=== PATIENT | female | born 1955 | race Caucasian/White ===

== ENCOUNTER 2016-06-27 16:36 | Inpatient (IN) | payer OTHER ==
[~2016-06-27] VITALS: Ht 160 cm; Wt 75.3 kg
[2016-06-27] VITALS (9 sets, daily range): BP systolic 115–141; BP diastolic 59–103
[~2016-06-27 16:36] MED LIST: ACTOS; ADDERALL30 MG PO; ALTACE; ALTOPREV40 MG PO; ARTIFICIAL TEAR15 M1 LEFT EYE; ARTIFICIAL TEAR15 M3 BOTH EYES; CEFUROXIME500 MG PO; CIPRO500 MG PO; DIAZEPAM10 MG PO; Ecotrin PO; GLUCOPHAGE1000 MG PO; LANTUS (UNITS)1 UNIT SC; LANTUS 10100 UNITS/ SC; LANTUS 3 M100 UNITS/ SC; LANTUS 3 M100 UNITS1 SC; LEVOTHYROXINE; LEVOTHYROXINE75 MCG PO; LISINOPRIL10 MG PO; LOVASTATIN; LOVASTATIN40 MG PO; METFORMIN; METFORMIN HCL1000 M1 PO; METFORMIN HCL1000 MG PO; NAPROSYN500 MG PO; RITALIN20 MG PO; SIMVASTATIN20 MG PO
[2016-06-27 16:49] LABS: EOSINOPHIL (%) 3.7 % (0-5); EOSINOPHIL COUNT 0.2 K/uL (0-0.3); IMMATURE GRANULOCYTE (%) 0.2 % (0.0-0.7); INSTRUMENT ABS NEUTROPHIL CT 2.9 K/uL; LYMPHOCYTE COUNT 1.5 K/uL (1.0-2.8); MCHC 33.1 G/DL (30.0-36.0); MCV 90.7 FL (83-99); MEAN PLAT.VOLUME 11.6 uM^3 (9.5-12.4); MONOCYTE COUNT 0.6 K/uL (0-0.8); NEUTROPHIL (%) 55.5 % (45-76); NEUTROPHIL COUNT 2.9 K/uL (1.8-6.4); PLATELET COUNT 184 K/uL (156-360); RBC DIS.WIDTH-CV 12.6 % (11.8-14.6); RBC DIS.WIDTH-SD 41.4 % (39-53); WHITE BLOOD COUNT 5.2 K/uL (4.1-10.2)
[2016-06-27 16:58] LABS: AMYLASE 44 IU/L (1-118); CHLORIDE 108 mEq/L (99-109); POTASSIUM 4.1 mEq/L (3.7-5.4); SODIUM 141 mEq/L (136-147)
[2016-06-27 17:00] LABS: GLUCOSE 318 mg/dL (70-99)
[2016-06-27 17:01] LABS: ANION GAP 10 MEQ/L (2-14)
[2016-06-27 17:03] LABS: SERUM ETHYL ALCOHOL < 10 mg/dL
[2016-06-27 17:04] LABS: GFR ESTIMATE (CALCULATED) 49 mL/min/
[2016-06-27 17:05] LABS: UREA NITROGEN (BUN) 22 mg/dL (9-23)
[2016-06-27 17:07] LABS: LIPASE 111 U/L (1.0-51.0)
[2016-06-27 19:25] LABS: POINT-OF-CARE METER ID UU13113731
[2016-06-27 21:17] LABS: METH RESISTANT S AUREUS PCR NEGATIVE (NEGATIVE)
[2016-06-27 21:31] LABS: PROBE CHECK PASS; SPECIMEN PROCESSING CONTROL PASS
[2016-06-27 22:47] LABS: POINT-OF-CARE METER ID UU13113731
[2016-06-28] VITALS (20 sets, daily range): BP systolic 84–136; BP diastolic 52–82
[2016-06-28 06:21] LABS: EOSINOPHIL (%) 3.6 % (0-5); EOSINOPHIL COUNT 0.2 K/uL (0-0.3); HEMATOCRIT 34.6 % (36.0-46.0); IMMATURE GRANULOCYTE (%) 0.4 % (0.0-0.7); INSTRUMENT ABS NEUTROPHIL CT 3.3 K/uL; LYMPHOCYTE COUNT 1.5 K/uL (1.0-2.8); MCH 30.3 PG (29.0-34.0); MCHC 33.2 G/DL (30.0-36.0); MCV 91.1 FL (83-99); MEAN PLAT.VOLUME 11.9 uM^3 (9.5-12.4); MONOCYTE COUNT 0.5 K/uL (0-0.8); NEUTROPHIL (%) 58.8 % (45-76); NEUTROPHIL COUNT 3.3 K/uL (1.8-6.4); PLATELET COUNT 158 K/uL (156-360); RBC DIS.WIDTH-CV 12.3 % (11.8-14.6); RBC DIS.WIDTH-SD 41.1 % (39-53); WHITE BLOOD COUNT 5.6 K/uL (4.1-10.2)
[2016-06-28 06:45] LABS: ALKALINE PHOSPHATASE 62 IU/L (3-129); ANION GAP 6 MEQ/L (2-14); CHLORIDE 107 MEQ/L (99-109); CREATINE KINASE 97 IU/L (1-294); DIRECT BILIRUBIN 0.1 mg/dL (0.0-0.3); GFR ESTIMATE (CALCULATED) > 59 mL/min/; GLUCOSE 179 mg/dL (70-99); HDL CHOLESTEROL 59 MG/DL (Desirable>=50); LDL CHOLESTEROL 147 mg/dL (Desirable<100); NON-HDL CHOLESTEROL 169 mg/dL (Desirable<160); POTASSIUM 4.4 MEQ/L (3.7-5.4); SAMPLE HEMOLYSIS CHECK 0; SAMPLE ICTERIC CHECK 0; SAMPLE LIPEMIA CHECK 0; SODIUM 138 MEQ/L (136-147); TOTAL BILIRUBIN 0.4 MG/DL (0.0-1.0); TOTAL CHOLESTEROL 228 mg/dL (Desirable<200); TOTAL CK 97 IU/L (1-294); TRIGLYCERIDES 111 MG/DL (Normal: <150); UREA NITROGEN (BUN) 21 mg/dL (9-23)
[2016-06-28 07:12] LABS: CK-MB 6.8 ng/mL (0.0-4.9)
[2016-06-28 07:23] LABS: TROP-I INTERPRETATION POSITIVE; TROPONIN-I 2.75 ng/mL (0.0-0.30)
[2016-06-28] MEDS ORDERED: ADDERALL XR 3030 MG PO ×2 (09:47→09:48)
[2016-06-28] MEDS ORDERED: LEVO-T75 MCG PO (09:49)
[2016-06-28] MEDS ORDERED: GLUCOPHAGE1000 MG PO (09:49)
[2016-06-28] MEDS ORDERED: LOSARTAN POTASS50 MG PO (09:49)
[2016-06-28] MEDS ORDERED: VALIUM10 MG PO (09:50)
[2016-06-28] MEDS ORDERED: LANTUS 10100 UNITS/ SC (09:50)
[2016-06-28 13:06] LABS: POINT-OF-CARE METER ID UU13113803
[2016-06-28 13:49] LABS: TROP-I INTERPRETATION POSITIVE; TROPONIN-I 2.13 ng/mL (0.0-0.30)
[2016-06-28 13:53] LABS: CREATINE KINASE 81 IU/L (1-294); TOTAL CK 81 IU/L (1-294)
[2016-06-28 14:21] LABS: CK-MB 5.6 ng/mL (0.0-4.9)
[2016-06-28 17:37] LABS: POINT-OF-CARE METER ID UU13113803
[2016-06-29 00:10] VITALS: BP 117/78
[2016-06-29 04:41] VITALS: BP 100/55
[2016-06-29 07:19] LABS: GFR ESTIMATE (CALCULATED) > 59 mL/min/; UREA NITROGEN (BUN) 26 mg/dL (9-23)
[2016-06-29 07:59] VITALS: BP 104/57
[2016-06-29 08:00] LABS: POINT-OF-CARE USER ID ENVKC36
[2016-06-29] MEDS ORDERED: NITROSTAT0.4 MG SL (09:57)
[2016-06-29] MEDS ORDERED: LISINOPRIL10 MG PO (09:57)
[2016-06-29] MEDS ORDERED: CLOPIDOGREL75 MG PO (09:57)
[2016-06-29] MEDS ORDERED: ASPIR-LOW81 MG PO (09:57)
[2016-06-29] MEDS ORDERED: CARVEDILOL6.25 MG PO (09:57)
[2016-06-29] MEDS ORDERED: EZETIMIBE10 MG PO (09:57)
== END 2016-06-29 13:02 | disposition home or self-care (01) | DRG 247 ==
LOC: EME 16:36 → CATH 18:03 → 2SOUTH 18:04 → 4WEST 18:04 → 4EAST 18:04 → 4WEST 18:06 → 4EAST 06-28 17:26
PROVIDERS: Emergency Medicine; Internal Medicine Cardiovascular Disease
DX: I21.19 ST elevation (STEMI) myocardial infarction involving other coronary artery of inferior wall (principal); I42.9 Cardiomyopathy, unspecified; I11.9 Hypertensive heart disease without heart failure; I25.10 Atherosclerotic heart disease of native coronary artery without angina pectoris; E78.5 Hyperlipidemia, unspecified; D35.2 Benign neoplasm of pituitary gland; E03.9 Hypothyroidism, unspecified; G51.0 Bell's palsy; E11.9 Type 2 diabetes mellitus without complications; R91.8 Other nonspecific abnormal finding of lung field; Z79.84 Long term (current) use of oral hypoglycemic drugs; Z79.4 Long term (current) use of insulin
CPT/HCPCS: 80048; 80061; 80076; 81003; 82150; 82550; 82550 91; 82553; 82565; 82948; 83690; 84484; 84520; 85025; 85347; 86850; 86900; 86901; 87641; 93005; 94799; 99281; 99285; C1725; C1769; C1874; C1887; G0480; J0153; J0461; J1644; J1815; J2250; J2405; J3010; J3246; J7040

== ENCOUNTER 2016-08-05 17:38 | Inpatient (IN) | payer OTHER ==
[~2016-08-05] VITALS: Ht 165.1 cm; Wt 72.7 kg
[~2016-08-05 17:38] MED LIST changes: +ADDERALL XR 3030 MG PO; +ASPIR-LOW81 MG PO; +CARVEDILOL6.25 MG PO; +CLOPIDOGREL75 MG PO; +EZETIMIBE10 MG PO; +LEVO-T75 MCG PO; +LOSARTAN POTASS50 MG PO; +NITROSTAT0.4 MG SL; +VALIUM10 MG PO
[2016-08-05 18:39] LABS: EOSINOPHIL (%) 1.5 % (0-5); EOSINOPHIL COUNT 0.1 K/uL (0-0.3); HEMATOCRIT 35.4 % (36.0-46.0); IMMATURE GRANULOCYTE (%) 0.3 % (0.0-0.7); INSTRUMENT ABS NEUTROPHIL CT 5.8 K/uL; LYMPHOCYTE COUNT 2.1 K/uL (1.0-2.8); MCH 29.8 PG (29.0-34.0); MCHC 32.8 G/DL (30.0-36.0); MEAN PLAT.VOLUME 11.8 uM^3 (9.5-12.4); MONOCYTE (%) 10.8 % (3-12); NEUTROPHIL (%) 64.1 % (45-76); NEUTROPHIL COUNT 5.8 K/uL (1.8-6.4); PLATELET COUNT 184 K/uL (156-360); RBC DIS.WIDTH-CV 12.9 % (11.8-14.6); RBC DIS.WIDTH-SD 42.2 % (39-53); RED BLOOD COUNT 3.89 M/uL (3.80-5.20); WHITE BLOOD COUNT 9.1 K/uL (4.1-10.2)
[2016-08-05 18:51] LABS: CHLORIDE 104 mEq/L (99-109); POTASSIUM 4.9 mEq/L (3.7-5.4); SODIUM 140 mEq/L (136-147)
[2016-08-05 18:52] LABS: MAGNESIUM 1.3 mg/dL (1.3-2.7)
[2016-08-05 18:53] LABS: GLUCOSE 65 mg/dL (70-99)
[2016-08-05 18:54] LABS: ANION GAP 14 MEQ/L (2-14)
[2016-08-05 18:57] LABS: GFR ESTIMATE (CALCULATED) 14 mL/min/
[2016-08-05 18:58] LABS: UREA NITROGEN (BUN) 51 mg/dL (9-23)
[2016-08-05 19:00] LABS: D-DIMER ELISA 1.24 mg/L FEU (< 0.57); INTER. NORMALIZED RATIO 1.1; PROTHROMBIN TIME 11.3 (9.2-11.2)
[2016-08-05 19:01] LABS: TROP-I INTERPRETATION NEGATIVE; TROPONIN-I 0.02 ng/mL (0.0-0.30)
[2016-08-05] MEDS ORDERED: PLAVIX75 MG PO (21:54)
[2016-08-05] MEDS ORDERED: ZOLPIDEM TARTRA10 MG PO (21:58)
[2016-08-05] MEDS ORDERED: NEW INSULIN (22:00)
[2016-08-05 23:00] VITALS: BP 132/63
[2016-08-05 23:56] LABS: TROP-I INTERPRETATION NEGATIVE; TROPONIN-I < 0.01 ng/mL (0.0-0.30)
[2016-08-06] MEDS ORDERED: TRAMADOL HCL50 MG PO (00:22)
[2016-08-06 04:33] VITALS: BP 104/50
[2016-08-06 07:52] LABS: TROP-I INTERPRETATION NEGATIVE; TROPONIN-I 0.02 ng/mL (0.0-0.30)
[2016-08-06 08:00] VITALS: BP 97/54
[2016-08-06 11:30] VITALS: BP 125/58
[2016-08-06 13:17] LABS: TROP-I INTERPRETATION NEGATIVE; TROPONIN-I < 0.01 ng/mL (0.0-0.30)
[2016-08-06 16:10] VITALS: BP 136/70
[2016-08-06 20:20] VITALS: BP 129/60
[2016-08-06 21:54] LABS: POINT-OF-CARE METER ID UU14174216
[2016-08-07 04:30] VITALS: BP 128/58
[2016-08-07 07:20] VITALS: BP 123/59
[2016-08-07 07:48] LABS: EOSINOPHIL (%) 2.3 % (0-5); EOSINOPHIL COUNT 0.1 K/uL (0-0.3); IMMATURE GRANULOCYTE (%) 0.2 % (0.0-0.7); INSTRUMENT ABS NEUTROPHIL CT 1.9 K/uL; LYMPHOCYTE COUNT 1.9 K/uL (1.0-2.8); MCH 30.2 PG (29.0-34.0); MCHC 32.6 G/DL (30.0-36.0); MCV 92.6 FL (83-99); MEAN PLAT.VOLUME 12.1 uM^3 (9.5-12.4); MONOCYTE (%) 11.3 % (3-12); MONOCYTE COUNT 0.5 K/uL (0-0.8); NEUTROPHIL (%) 42.9 % (45-76); NEUTROPHIL COUNT 1.9 K/uL (1.8-6.4); PLATELET COUNT 148 K/uL (156-360); RBC DIS.WIDTH-CV 12.6 % (11.8-14.6); RED BLOOD COUNT 3.67 M/uL (3.80-5.20); WHITE BLOOD COUNT 4.3 K/uL (4.1-10.2)
[2016-08-07 08:19] LABS: CHLORIDE 113 mEq/L (99-109); POTASSIUM 5.6 mEq/L (3.7-5.4); SODIUM 139 mEq/L (136-147)
[2016-08-07 08:21] LABS: GLUCOSE 166 mg/dL (70-99)
[2016-08-07 08:22] LABS: ANION GAP 5 MEQ/L (2-14)
[2016-08-07 08:25] LABS: GFR ESTIMATE (CALCULATED) 41 mL/min/
[2016-08-07 08:26] LABS: UREA NITROGEN (BUN) 28 mg/dL (9-23)
[2016-08-07 11:03] VITALS: BP 168/67
[2016-08-07 11:22] LABS: POINT-OF-CARE METER ID UU14174216
[2016-08-07 16:41] VITALS: BP 162/72
[2016-08-07 19:20] VITALS: BP 159/70
[2016-08-07 23:44] VITALS: BP 132/65
[2016-08-08 04:20] VITALS: BP 143/66
[2016-08-08 07:28] LABS: EOSINOPHIL (%) 3.3 % (0-5); EOSINOPHIL COUNT 0.2 K/uL (0-0.3); HEMATOCRIT 32.9 % (36.0-46.0); IMMATURE GRANULOCYTE (%) 0.2 % (0.0-0.7); INSTRUMENT ABS NEUTROPHIL CT 2.2 K/uL; MCH 30.7 PG (29.0-34.0); MCHC 33.7 G/DL (30.0-36.0); MCV 91.1 FL (83-99); MEAN PLAT.VOLUME 11.9 uM^3 (9.5-12.4); MONOCYTE (%) 10.1 % (3-12); MONOCYTE COUNT 0.5 K/uL (0-0.8); NEUTROPHIL (%) 45.3 % (45-76); NEUTROPHIL COUNT 2.2 K/uL (1.8-6.4); PLATELET COUNT 146 K/uL (156-360); RBC DIS.WIDTH-CV 12.6 % (11.8-14.6); RBC DIS.WIDTH-SD 41.6 % (39-53); RED BLOOD COUNT 3.61 M/uL (3.80-5.20); WHITE BLOOD COUNT 4.9 K/uL (4.1-10.2)
[2016-08-08 07:38] LABS: POINT-OF-CARE METER ID UU13113781
[2016-08-08 08:00] LABS: ALKALINE PHOSPHATASE 50 IU/L (3-129); ANION GAP 6 MEQ/L (2-14); CHLORIDE 109 MEQ/L (99-109); GFR ESTIMATE (CALCULATED) 54 mL/min/; GLUCOSE 171 mg/dL (70-99); POTASSIUM 4.5 MEQ/L (3.7-5.4); SAMPLE HEMOLYSIS CHECK 0; SAMPLE ICTERIC CHECK 0; SAMPLE LIPEMIA CHECK 0; SODIUM 139 MEQ/L (136-147); TOTAL BILIRUBIN 0.4 MG/DL (0.0-1.0); UREA NITROGEN (BUN) 19 mg/dL (9-23)
[2016-08-08 08:43] VITALS: BP 137/63
[2016-08-08 12:09] VITALS: BP 133/63
[2016-08-08] MEDS ORDERED: ASPIRIN EC325 MG PO (12:16)
[2016-08-08] MEDS ORDERED: GLYBURIDE2.5 MG PO (12:19)
[2016-08-08 12:38] LABS: ADD MIUA? YES; BILIRUBIN NEGATIVE; BLOOD NEGATIVE; COLOR STRAW ((YELLOW)); GLUCOSE (STRIP) >=500; KETONES NEGATIVE; LEUKOCYTES MODERATE; NITRITE NEGATIVE; PROTEIN (STRIP) NEGATIVE; SPECIFIC GRAVITY 1.007 (1.000-1.030); UROBILINOGEN 0.2 MG/DL (0.2-1.0)
[2016-08-08 12:46] LABS: BACTERIA RARE /HPF; EPITHELIAL CELLS RARE /HPF; MUCUS TRACE /LPF; RED BLOOD CELLS 0-5 /HPF (0-5); UCUL ADDED? NO
== END 2016-08-08 15:53 | disposition home or self-care (01) | DRG 683 ==
LOC: EME 17:38 → EDOF 20:30 → 4EAST 20:30
PROVIDERS: Emergency Medicine; Hospitalist; Internal Medicine Nephrology
DX: N17.8 Other acute kidney failure (principal); I42.0 Dilated cardiomyopathy; I25.5 Ischemic cardiomyopathy; E11.9 Type 2 diabetes mellitus without complications; Z95.1 Presence of aortocoronary bypass graft; R62.7 Adult failure to thrive; E86.0 Dehydration; E03.9 Hypothyroidism, unspecified; I10 Essential (primary) hypertension; E78.5 Hyperlipidemia, unspecified; G47.00 Insomnia, unspecified; E66.9 Obesity, unspecified; I25.2 Old myocardial infarction; Z60.2 Problems related to living alone; Z79.02 Long term (current) use of antithrombotics/antiplatelets; Z68.26 Body mass index [BMI] 26.0-26.9, adult; Z79.82 Long term (current) use of aspirin; Z95.5 Presence of coronary angioplasty implant and graft; Z79.84 Long term (current) use of oral hypoglycemic drugs; Z79.4 Long term (current) use of insulin
CPT/HCPCS: 71010; 76770; 78582; 80048; 80053; 81003; 82948; 83735; 84484; 85025; 85379; 85610; 85730; 93005; 93970; 99281; 99285; A9539; A9540; J1644; J1815; J3475; J7030; S0028

== ENCOUNTER 2016-11-28 17:16 | Inpatient (IN) | payer OTHER ==
[~2016-11-28] VITALS: Ht 165.1 cm; Wt 83.0 kg
[~2016-11-28 17:16] MED LIST changes: +ASPIRIN EC325 MG PO; +GLYBURIDE2.5 MG PO; +NEW INSULIN; +PLAVIX75 MG PO; +TRAMADOL HCL50 MG PO; +ZOLPIDEM TARTRA10 MG PO
[2016-11-28 18:40] LABS: POINT-OF-CARE METER ID UU14100415
[2016-11-28 19:06] LABS: EOSINOPHIL (%) 1.7 % (0-5); EOSINOPHIL COUNT 0.2 K/uL (0-0.3); HEMATOCRIT 34.6 % (36.0-46.0); IMMATURE GRANULOCYTE (%) 0.5 % (0.0-0.7); INSTRUMENT ABS NEUTROPHIL CT 6.7 K/uL; LYMPHOCYTE COUNT 1.2 K/uL (1.0-2.8); MCH 30.5 PG (29.0-34.0); MCHC 32.7 G/DL (30.0-36.0); MCV 93.3 FL (83-99); MEAN PLAT.VOLUME 11.1 uM^3 (9.5-12.4); MONOCYTE COUNT 0.6 K/uL (0-0.8); NEUTROPHIL COUNT 6.7 K/uL (1.8-6.4); PLATELET COUNT 178 K/uL (156-360); RBC DIS.WIDTH-CV 12.5 % (11.8-14.6); RED BLOOD COUNT 3.71 M/uL (3.80-5.20); WHITE BLOOD COUNT 8.7 K/uL (4.1-10.2)
[2016-11-28 19:14] LABS: CHLORIDE 109 mEq/L (99-109); POTASSIUM 3.9 mEq/L (3.7-5.4); SODIUM 142 mEq/L (136-147)
[2016-11-28 19:16] LABS: GLUCOSE 276 mg/dL (70-99)
[2016-11-28 19:17] LABS: ANION GAP 12 MEQ/L (2-14)
[2016-11-28 19:20] LABS: GFR ESTIMATE (CALCULATED) > 59 mL/min/
[2016-11-28 19:21] LABS: UREA NITROGEN (BUN) 20 mg/dL (9-23)
[2016-11-28 23:01] LABS: HEMATOCRIT 36.1 % (36.0-46.0); MCV 95.3 FL (83-99)
[2016-11-28 23:10] LABS: AMYLASE 43 IU/L (1-118)
[2016-11-28 23:13] LABS: PROTHROMBIN TIME 10.9 SEC (10.2-12.9)
[2016-11-28 23:14] LABS: TOTAL BILIRUBIN 0.4 mg/dL (0.0-1.0)
[2016-11-28 23:15] LABS: ALKALINE PHOSPHATASE 75 IU/L (3-129)
[2016-11-28 23:16] LABS: PTT 24.1 SEC (25-37)
[2016-11-28 23:18] LABS: DIRECT BILIRUBIN 0.2 mg/dL (0.0-0.3)
[2016-11-28 23:19] LABS: LIPASE 56 U/L (1.0-51.0)
[2016-11-28 23:23] LABS: TROP-I INTERPRETATION NEGATIVE; TROPONIN-I < 0.01 ng/mL (0.0-0.30)
[2016-11-28] MEDS ORDERED: DIAZEPAM10 MG PO (23:27)
[2016-11-29] VITALS (15 sets, daily range): BP systolic 115–166; BP diastolic 69–96
[2016-11-29 01:37] LABS: METH RESISTANT S AUREUS PCR NEGATIVE (NEGATIVE)
[2016-11-29 01:39] LABS: PROBE CHECK PASS; SPECIMEN PROCESSING CONTROL PASS
[2016-11-29 05:19] LABS: HEMATOCRIT 35.2 % (36.0-46.0); MCH 31.9 PG (29.0-34.0); MCHC 33.8 G/DL (30.0-36.0); MCV 94.4 FL (83-99); MEAN PLAT.VOLUME 11.8 uM^3 (9.5-12.4); PLATELET COUNT 161 K/uL (156-360); RBC DIS.WIDTH-CV 12.8 % (11.8-14.6); RBC DIS.WIDTH-SD 43.8 % (39-53); RED BLOOD COUNT 3.73 M/uL (3.80-5.20); WHITE BLOOD COUNT 8.8 K/uL (4.1-10.2)
[2016-11-29 05:24] LABS: CHLORIDE 110 mEq/L (99-109); SODIUM 139 mEq/L (136-147)
[2016-11-29 05:25] LABS: POTASSIUM 5.1 mEq/L (3.7-5.4)
[2016-11-29 05:26] LABS: GLUCOSE 202 mg/dL (70-99)
[2016-11-29 05:27] LABS: ANION GAP 12 MEQ/L (2-14)
[2016-11-29 05:28] LABS: TOTAL BILIRUBIN 0.4 mg/dL (0.0-1.0)
[2016-11-29 05:29] LABS: ALKALINE PHOSPHATASE 74 IU/L (3-129)
[2016-11-29 05:30] LABS: GFR ESTIMATE (CALCULATED) > 59 mL/min/
[2016-11-29 05:31] LABS: UREA NITROGEN (BUN) 16 mg/dL (9-23)
[2016-11-29 06:31] LABS: Estimated Average Glucose 192 mg/dL (70-123); HEMOGLOBIN A1c (GLYCOHEMOGLOB) 8.3 % HGB (Below 5.7)
[2016-11-29 09:16] LABS: POINT-OF-CARE METER ID UU13113731
[2016-11-29 11:03] LABS: POINT-OF-CARE METER ID UU13113731
[2016-11-29 14:41] LABS: HEMATOCRIT 34.3 % (36.0-46.0); MCV 96.6 FL (83-99)
[2016-11-29 17:44] LABS: POINT-OF-CARE METER ID UU13113731
[2016-11-29 21:49] LABS: POINT-OF-CARE METER ID UU13113731
[2016-11-30] VITALS (12 sets, daily range): BP systolic 0–177; BP diastolic 0–135
[2016-11-30 06:12] LABS: HEMATOCRIT 33.2 % (36.0-46.0); MCV 94.1 FL (83-99); MEAN PLAT.VOLUME 12.1 uM^3 (9.5-12.4); PLATELET COUNT 132 K/uL (156-360); RBC DIS.WIDTH-CV 12.5 % (11.8-14.6); RBC DIS.WIDTH-SD 43.3 % (39-53); RED BLOOD COUNT 3.53 M/uL (3.80-5.20); WHITE BLOOD COUNT 5.7 K/uL (4.1-10.2)
[2016-11-30 06:17] LABS: ANION GAP 8 MEQ/L (2-14); CHLORIDE 104 MEQ/L (99-109); POTASSIUM 4.3 MEQ/L (3.7-5.4); SAMPLE HEMOLYSIS CHECK 0; SAMPLE ICTERIC CHECK 0; SAMPLE LIPEMIA CHECK 0; SODIUM 138 MEQ/L (136-147); TOTAL BILIRUBIN 0.4 MG/DL (0.0-1.0)
[2016-11-30 06:23] LABS: ALKALINE PHOSPHATASE 64 IU/L (3-129); GFR ESTIMATE (CALCULATED) > 59 mL/min/; GLUCOSE 151 mg/dL (70-99); UREA NITROGEN (BUN) 15 mg/dL (9-23)
[2016-11-30 11:58] LABS: POINT-OF-CARE METER ID UU13113731
[2016-11-30 17:28] LABS: POINT-OF-CARE METER ID UU13113675
[2016-11-30 21:42] LABS: POINT-OF-CARE METER ID UU14162636
[2016-12-01] VITALS (9 sets, daily range): BP systolic 0–188; BP diastolic 0–115
[2016-12-01 06:45] LABS: HEMATOCRIT 33.1 % (36.0-46.0); MCH 32.2 PG (29.0-34.0); MCHC 33.8 G/DL (30.0-36.0); MCV 95.1 FL (83-99); MEAN PLAT.VOLUME 11.7 uM^3 (9.5-12.4); RBC DIS.WIDTH-CV 12.6 % (11.8-14.6); RBC DIS.WIDTH-SD 43.5 % (39-53); RED BLOOD COUNT 3.48 M/uL (3.80-5.20); WHITE BLOOD COUNT 9.2 K/uL (4.1-10.2)
[2016-12-01 06:53] LABS: PLATELET COUNT 183 K/uL (156-360)
[2016-12-01 07:11] LABS: ALKALINE PHOSPHATASE 64 IU/L (3-129); ANION GAP 8 MEQ/L (2-14); CHLORIDE 101 MEQ/L (99-109); GFR ESTIMATE (CALCULATED) > 59 mL/min/; GLUCOSE 222 mg/dL (70-99); POTASSIUM 4.5 MEQ/L (3.7-5.4); SAMPLE HEMOLYSIS CHECK 0; SAMPLE ICTERIC CHECK 0; SAMPLE LIPEMIA CHECK 0; SODIUM 137 MEQ/L (136-147); TOTAL BILIRUBIN 0.4 MG/DL (0.0-1.0); UREA NITROGEN (BUN) 13 mg/dL (9-23)
[2016-12-01 12:03] LABS: POINT-OF-CARE METER ID UU13113731
[2016-12-01 16:10] LABS: POINT-OF-CARE METER ID UU14117124
[2016-12-01 22:19] LABS: POINT-OF-CARE METER ID UU14188577
[2016-12-02] VITALS (7 sets, daily range): BP systolic 101–159; BP diastolic 56–72
[2016-12-02 06:13] LABS: POINT-OF-CARE METER ID UU14188577
[2016-12-02 06:26] LABS: HEMATOCRIT 28.2 % (36.0-46.0); MCH 31.5 PG (29.0-34.0); MCHC 33.3 G/DL (30.0-36.0); MCV 94.6 FL (83-99); MEAN PLAT.VOLUME 11.8 uM^3 (9.5-12.4); PLATELET COUNT 159 K/uL (156-360); RBC DIS.WIDTH-CV 12.5 % (11.8-14.6); RBC DIS.WIDTH-SD 43.7 % (39-53); RED BLOOD COUNT 2.98 M/uL (3.80-5.20); WHITE BLOOD COUNT 6.4 K/uL (4.1-10.2)
[2016-12-02 07:12] LABS: ALKALINE PHOSPHATASE 61 IU/L (3-129); ANION GAP 6 MEQ/L (2-14); CHLORIDE 101 MEQ/L (99-109); GFR ESTIMATE (CALCULATED) > 59 mL/min/; GLUCOSE 183 mg/dL (70-99); POTASSIUM 4.1 MEQ/L (3.7-5.4); SAMPLE HEMOLYSIS CHECK 0; SAMPLE ICTERIC CHECK 0; SAMPLE LIPEMIA CHECK 0; SODIUM 137 MEQ/L (136-147); TOTAL BILIRUBIN 0.4 MG/DL (0.0-1.0); UREA NITROGEN (BUN) 15 mg/dL (9-23)
[2016-12-02 16:38] LABS: POINT-OF-CARE METER ID UU14188577
[2016-12-03 04:11] VITALS: BP 176/77
[2016-12-03 06:47] LABS: POINT-OF-CARE METER ID UU14208753
[2016-12-03 06:48] LABS: HEMATOCRIT 28.3 % (36.0-46.0); MCH 30.7 PG (29.0-34.0); MCHC 32.5 G/DL (30.0-36.0); MCV 94.3 FL (83-99); MEAN PLAT.VOLUME 11.6 uM^3 (9.5-12.4); PLATELET COUNT 181 K/uL (156-360); RBC DIS.WIDTH-CV 12.7 % (11.8-14.6); RBC DIS.WIDTH-SD 43.6 % (39-53); WHITE BLOOD COUNT 7.4 K/uL (4.1-10.2)
[2016-12-03 07:20] LABS: ALKALINE PHOSPHATASE 63 IU/L (3-129); ANION GAP 6 MEQ/L (2-14); CHLORIDE 101 MEQ/L (99-109); GFR ESTIMATE (CALCULATED) > 59 mL/min/; GLUCOSE 159 mg/dL (70-99); POTASSIUM 4.3 MEQ/L (3.7-5.4); SAMPLE HEMOLYSIS CHECK 0; SAMPLE ICTERIC CHECK 0; SAMPLE LIPEMIA CHECK 0; SODIUM 138 MEQ/L (136-147); TOTAL BILIRUBIN 0.5 MG/DL (0.0-1.0); UREA NITROGEN (BUN) 18 mg/dL (9-23)
[2016-12-03 08:05] VITALS: BP 158/74
[2016-12-03 11:40] VITALS: BP 144/72
[2016-12-03 15:43] VITALS: BP 142/62
[2016-12-03 17:12] LABS: POINT-OF-CARE METER ID UU14208753
[2016-12-03 19:16] VITALS: BP 166/80
[2016-12-03 21:38] LABS: POINT-OF-CARE METER ID UU14208753
[2016-12-03 23:35] VITALS: BP 173/78
[2016-12-04 04:08] VITALS: BP 135/64
[2016-12-04 06:37] LABS: POINT-OF-CARE METER ID UU14117124
[2016-12-04 07:45] VITALS: BP 145/80
[2016-12-04 11:12] VITALS: BP 139/66
[2016-12-04 11:57] LABS: POINT-OF-CARE METER ID UU14208753
[2016-12-04] MEDS ORDERED: SENNA LAX8.6 MG PO (15:13)
[2016-12-04] MEDS ORDERED: OXYCODONE HCL5 MG PO (15:13)
[2016-12-04] MEDS ORDERED: BETHANECHOL CHL25 MG PO (15:13)
[2016-12-04] MEDS ORDERED: NIFEREX-150,FE150 MG PO (15:13)
[2016-12-04 15:29] VITALS: BP 117/53
[2016-12-04 16:32] LABS: POINT-OF-CARE METER ID UU14208753
[2016-12-04 19:11] VITALS: BP 141/68
[2016-12-04 21:16] LABS: POINT-OF-CARE METER ID UU14208753
[2016-12-04 23:24] VITALS: BP 171/80
[2016-12-05 03:41] VITALS: BP 136/73
[2016-12-05 05:17] LABS: EOSINOPHIL (%) 2.2 % (0-5); EOSINOPHIL COUNT 0.2 K/uL (0-0.3); HEMATOCRIT 28.3 % (36.0-46.0); IMMATURE GRANULOCYTE (%) 0.4 % (0.0-0.7); INSTRUMENT ABS NEUTROPHIL CT 4.6 K/uL; LYMPHOCYTE COUNT 1.1 K/uL (1.0-2.8); MCH 30.6 PG (29.0-34.0); MCHC 33.2 G/DL (30.0-36.0); MCV 92.2 FL (83-99); MONOCYTE (%) 11.7 % (3-12); MONOCYTE COUNT 0.8 K/uL (0-0.8); NEUTROPHIL (%) 68.4 % (45-76); NEUTROPHIL COUNT 4.6 K/uL (1.8-6.4); PLATELET COUNT 223 K/uL (156-360); RBC DIS.WIDTH-CV 12.5 % (11.8-14.6); RED BLOOD COUNT 3.07 M/uL (3.80-5.20); WHITE BLOOD COUNT 6.7 K/uL (4.1-10.2)
[2016-12-05 05:45] LABS: ANION GAP 9 MEQ/L (2-14); CHLORIDE 100 MEQ/L (99-109); GFR ESTIMATE (CALCULATED) > 59 mL/min/; GLUCOSE 187 mg/dL (70-99); POTASSIUM 4.4 MEQ/L (3.7-5.4); SAMPLE HEMOLYSIS CHECK 0; SAMPLE ICTERIC CHECK 0; SAMPLE LIPEMIA CHECK 0; SODIUM 137 MEQ/L (136-147); UREA NITROGEN (BUN) 21 mg/dL (9-23)
[2016-12-05 06:22] LABS: POINT-OF-CARE METER ID UU14117124
[2016-12-05 06:55] VITALS: BP 127/72
[2016-12-05 11:55] VITALS: BP 135/74
[2016-12-05 12:03] LABS: POINT-OF-CARE METER ID UU14117124
[2016-12-05 15:35] VITALS: BP 138/68
[2016-12-05 16:48] LABS: POINT-OF-CARE METER ID UU14117124
[2016-12-05 19:44] VITALS: BP 142/67
[2016-12-05 21:22] LABS: POINT-OF-CARE METER ID UU14208753
[2016-12-05 23:24] VITALS: BP 169/75
[2016-12-06 06:09] LABS: POINT-OF-CARE METER ID UU14208753
[2016-12-06 08:11] VITALS: BP 125/78
[2016-12-06 11:30] VITALS: BP 139/65
[2016-12-06 15:59] VITALS: BP 113/57
[2016-12-06 16:07] LABS: POINT-OF-CARE METER ID UU14188577
== END 2016-12-06 19:13 | DRG 958 ==
LOC: TRA 17:16 → EME 17:16 → 3EAST 22:20 → EDOF 22:20 → 4WEST 22:20 → ENRESERV 22:27 → 4WEST 23:57 → ENRESERV 12-01 13:00 → 3EAST 12-01 14:40
PROVIDERS: Emergency Medicine; Hospitalist; Surgery
PROC: 0PSL04Z Reposition Left Ulna with Internal Fixation Device, Open Approach (ICD-10-PCS; principal; 2016-11-30)
PROC: 0PSJ04Z Reposition Left Radius with Internal Fixation Device, Open Approach (ICD-10-PCS; principal; 2016-11-30)
DX: S52.332A Displaced oblique fracture of shaft of left radius, initial encounter for closed fracture (principal); S36.112A Contusion of liver, initial encounter; S37.812A Contusion of adrenal gland, initial encounter; S36.892A Contusion of other intra-abdominal organs, initial encounter; S52.232A Displaced oblique fracture of shaft of left ulna, initial encounter for closed fracture; S20.211A Contusion of right front wall of thorax, initial encounter; S30.1XXA Contusion of abdominal wall, initial encounter; V43.52XA Car driver injured in collision with other type car in traffic accident, initial encounter; D69.1 Qualitative platelet defects; E11.65 Type 2 diabetes mellitus with hyperglycemia; I11.0 Hypertensive heart disease with heart failure; I50.22 Chronic systolic (congestive) heart failure; R15.9 Full incontinence of feces; D18.09 Hemangioma of other sites; D35.2 Benign neoplasm of pituitary gland; D64.9 Anemia, unspecified; E03.9 Hypothyroidism, unspecified; E78.5 Hyperlipidemia, unspecified; I25.10 Atherosclerotic heart disease of native coronary artery without angina pectoris; I25.5 Ischemic cardiomyopathy; K57.90 Diverticulosis of intestine, part unspecified, without perforation or abscess without bleeding; F41.9 Anxiety disorder, unspecified; R33.9 Retention of urine, unspecified; R47.1 Dysarthria and anarthria; E66.9 Obesity, unspecified; Z68.30 Body mass index [BMI] 30.0-30.9, adult; I25.2 Old myocardial infarction; Z95.5 Presence of coronary angioplasty implant and graft; Z79.02 Long term (current) use of antithrombotics/antiplatelets; Z79.4 Long term (current) use of insulin; Z79.82 Long term (current) use of aspirin; Z87.891 Personal history of nicotine dependence; Z82.49 Family history of ischemic heart disease and other diseases of the circulatory system
CPT/HCPCS: 70450; 71260; 72125; 72129; 72132; 73070; 73090; 74177; 76000; 80048; 80053; 80076; 82150; 82948; 83036; 83690; 84484; 85014; 85018; 85025; 85027; 85610; 85730; 86850; 86900; 86901; 87641; 93005; 94760; 94799; 97530 GO; 99281; 99285; C1713; J0131; J0690; J1100; J1170; J1815; J2250; J2270; J2405; J3010; J7030; J7050; J7120

== ENCOUNTER 2017-06-27 15:36 | Emergency (ER) | payer OTHER ==
[~2017-06-27] VITALS: Ht 162.6 cm; Wt 75.4 kg
[~2017-06-27 15:36] MED LIST changes: +BETHANECHOL CHL25 MG PO; +NIFEREX-150,FE150 MG PO; +OXYCODONE HCL5 MG PO; +SENNA LAX8.6 MG PO
[2017-06-27 19:03] LABS: APPEARANCE CLOUDY ((CLEAR)); BILIRUBIN NEGATIVE; BLOOD SMALL; COLOR YELLOW ((YELLOW)); GLUCOSE (STRIP) 150; KETONES NEGATIVE; LEUKOCYTES LARGE; NITRITE NEGATIVE; PROTEIN (STRIP) NEGATIVE; SPECIFIC GRAVITY 1.017 (1.000-1.030); UROBILINOGEN 0.2 MG/DL (0.2-1.0)
[2017-06-27 19:06] LABS: BACTERIA 1+ /HPF; EPITHELIAL CELLS 2+ /HPF; HYALINE CASTS 0-5 /LPF; MUCUS TRACE /LPF; UCUL ADDED? YES; WHITE BLOOD CELLS 20-30 /HPF (0-5)
[2017-06-27] MEDS ORDERED: MOTRIN800 MG PO (19:28)
[2017-06-27] MEDS ORDERED: SKELAXIN800 MG PO (19:28)
[2017-06-27] MEDS ORDERED: LIDODERM 5% P1 PATCH TD (19:28)
[2017-06-27] MEDS ORDERED: KEFLEX500 MG PO (19:28)
[2017-06-27 19:44] VITALS: BP 107/63
== END 2017-06-27 19:45 | disposition home or self-care (01) ==
LOC: EME 15:36
PROVIDERS: Nurse Practitioner Family
DX: M54.5 Low back pain (principal); N39.0 Urinary tract infection, site not specified; Z91.81 History of falling; Z87.891 Personal history of nicotine dependence; Z88.8 Allergy status to other drugs, medicaments and biological substances
CPT/HCPCS: 81003; 87077; 87086; 87186; 99281; 99284; J1885

== ENCOUNTER 2017-09-15 14:23 | Emergency (ER) | payer OTHER ==
[~2017-09-15] VITALS: Ht 165.1 cm; Wt 77.2 kg
[~2017-09-15 14:23] MED LIST changes: +KEFLEX500 MG PO; +LIDODERM 5% P1 PATCH TD; +MOTRIN800 MG PO; +SKELAXIN800 MG PO
[2017-09-15 17:30] VITALS: BP 147/64
== END 2017-09-15 17:37 | disposition home or self-care (01) ==
LOC: EME 14:23
DX: F41.9 Anxiety disorder, unspecified (principal); M54.31 Sciatica, right side; V49.9XXD Car occupant (driver) (passenger) injured in unspecified traffic accident, subsequent encounter; E78.5 Hyperlipidemia, unspecified; G51.0 Bell's palsy; I25.2 Old myocardial infarction; F32.9 Major depressive disorder, single episode, unspecified; Z87.891 Personal history of nicotine dependence; Z87.19 Personal history of other diseases of the digestive system
CPT/HCPCS: 90839; 99281; 99285

== ENCOUNTER 2017-09-25 11:43 | Emergency (ER) | payer OTHER ==
[~2017-09-25] VITALS: Ht 160 cm; Wt 72.0 kg
[2017-09-25 12:29] LABS: HEMATOCRIT 35.4 % (36.0-46.0); HEMOGLOBIN 12.3 G/DL (11.9-15.5); MCH 32.5 PG (29.0-34.0); MCHC 34.7 G/DL (30.0-36.0); MCV 93.4 FL (83-99); PLATELET COUNT 142 K/uL (156-360); RBC DIS.WIDTH-CV 12.3 % (11.8-14.6); RBC DIS.WIDTH-SD 42.5 % (39-53); RED BLOOD COUNT 3.79 M/uL (3.80-5.20); WHITE BLOOD COUNT 6.4 K/uL (4.1-10.2)
[2017-09-25 12:36] LABS: ALBUMIN 3.3 g/dL (3.2-4.8)
[2017-09-25 12:37] LABS: CHLORIDE 109 mEq/L (99-109); POTASSIUM 3.7 mEq/L (3.7-5.4); SODIUM 141 mEq/L (136-147)
[2017-09-25 12:39] LABS: GLUCOSE 209 mg/dL (70-99); TOTAL PROTEIN 6.3 g/dL (6.4-8.3)
[2017-09-25 12:41] LABS: TOTAL BILIRUBIN 0.3 mg/dL (0.0-1.0)
[2017-09-25 12:42] LABS: ALKALINE PHOSPHATASE 93 IU/L (3-129)
[2017-09-25 12:43] LABS: CREATININE 1.1 mg/dL (0.6-1.3); GFR ESTIMATE (CALCULATED) 54 mL/min/
[2017-09-25 12:44] LABS: AST (GOT) 23 IU/L (2-34); UREA NITROGEN (BUN) 22 mg/dL (9-23)
[2017-09-25 12:46] LABS: ALT (GPT) 24 IU/L (3-49)
[2017-09-25 12:49] LABS: TROP-I INTERPRETATION NEGATIVE; TROPONIN-I 0.01 ng/mL (0.0-0.30)
[2017-09-25 17:41] LABS: TROP-I INTERPRETATION NEGATIVE; TROPONIN-I < 0.01 ng/mL (0.0-0.30)
[2017-09-25] MEDS ORDERED: PROAIR HFA8.5 GM IH (17:52)
[2017-09-25 18:53] VITALS: BP 140/90
== END 2017-09-25 18:54 | disposition home or self-care (01) ==
LOC: EME 11:43
PROVIDERS: Physician Assistant
DX: R06.00 Dyspnea, unspecified (principal); R07.89 Other chest pain; E78.5 Hyperlipidemia, unspecified; I25.2 Old myocardial infarction; F41.9 Anxiety disorder, unspecified; F32.9 Major depressive disorder, single episode, unspecified; Z87.891 Personal history of nicotine dependence
CPT/HCPCS: 71046; 71275; 80053; 81003; 84484; 85027; 85379; 94640; 99281; 99285